=== PATIENT | female | born 1990 | race Caucasian/White ===

== ENCOUNTER → 2021-03-23 | Outpatient (CLI) | payer OTHER ==
--- NOTE | 2021-03-23 13:19 | REP ---
INDICATION: POST COVID, SHORTNESS OF BREATH COMPARISON: None. TECHNIQUE: PA and lateral. FINDINGS: The mediastinum and cardiac silhouette are normal. Very subtle left mid lung airspace disease cannot be excluded. No discrete focal consolidation. No effusion. No pneumothorax. The skeletal structures are intact and normal. IMPRESSION: Subtle left-sided airspace disease cannot be excluded. <Electronically signed by Ray Huertas > 03/23/21 [id number]
== END ==
LOC: M WUC 11:52
PROVIDERS: ATTEND Nurse Practitioner Family
DX: U07.1 COVID-19 (principal)